=== PATIENT | male | born 1980 | race Caucasian/White ===

== ENCOUNTER 2021-02-20 03:23 | Emergency (ER) | payer OTHER, SELFPAY ==
[2021-02-20 03:32] VITALS: BP 175/111; PULSE 75; RESP 17; TEMP 36.9; O2SAT 75; BMI 38.8
--- NOTE | 2021-02-20 03:43 | CT_ITS ---
PROCEDURE INFORMATION: Exam: CT Abdomen And Pelvis With Contrast Exam date and time: 02/20/2021 3:43 AM Age: 40 years old Clinical indication: Abdominal pain; Other: Bilateral flank and mid abdomen pain; Additional info: Abd pain TECHNIQUE: Imaging protocol: Computed tomography of the abdomen and pelvis with contrast. Radiation optimization: All CT scans at this facility use at least one of these dose optimization techniques: automated exposure control; mA and/or kV adjustment per patient size (includes targeted exams where dose is matched to clinical indication); or iterative reconstruction. Contrast material: ISOVUE; Contrast volume: 75 ml; Contrast route: IV; COMPARISON: No relevant prior studies available. FINDINGS: Lungs: Minimal posterior dependent atelectasis. Liver: Normal. Gallbladder and bile ducts: Normal. Pancreas: Normal. Spleen: Normal. Adrenal glands: Normal. No mass. Kidneys and ureters: Bilateral nephrolithiasis. Left hydroureteronephrosis, with obstructive 3 mm calculus in the distal left ureter (series 3, image 120). 11 mm hypodense focus within the medial aspect of the left renal midpole, possibly proteinaceous cyst, although not definitively characterized on this study. Stomach and bowel: Normal. Appendix: Appendix normal. Intraperitoneal space: Unremarkable. No free air. No significant fluid collection. Vasculature: Unremarkable. No abdominal aortic aneurysm. Lymph nodes: Unremarkable. No enlarged lymph nodes. Urinary bladder: Unremarkable as visualized. Reproductive: Unremarkable as visualized. Bones/joints: No acute abnormality. Soft tissues: Small fat containing left inguinal hernia. Small fat containing umbilical hernia. IMPRESSION: 1. Left hydroureteronephrosis, with obstructive 3 mm calculus in the distal left ureter (series 3, image 120). 2. 11 mm hypodense focus within the medial aspect of the left renal midpole, possibly proteinaceous cyst, although not definitively characterized on this study. Recommend further evaluation with renal CT or MRI. COMMENTS: Consistent with the [employer]'s Incidental Findings Committee white paper (J Am Sina Radiol 2018): Any incidental renal lesion less than 1 cm or classified as too small to characterize, or any incidental cystic renal lesion characterized as simple-appearing, is likely benign. No follow-up imaging is recommended for these lesions per consensus recommendations based on imaging criteria.
--- NOTE | 2021-02-20 03:50 | [facility].EDNVD ---
ED Disposition Clinical Impression: Renal colic on left side Disposition: Home, Self-Care Condition on Discharge: Good Instructions: Kidney Stones -- Adult Additional Instructions: pt with acute lt renal colic Prescriptions: Tamsulosin HCl [Flomax 0.4mg capsule] 0.4 mg PO HS #10 cap Prescription Printed - Critical Care Critical Care Time: No Attestation: On , the high probability of a clinically significant, sudden or life threatening deterioration of the following system(s) required my full and direct attention, intervention and personal management. The time I documented below is in addition to time spent performing reported procedures but includes the following listed in this critical care notation. Medical Decision Making - Medical Records Medical records reviewed: Yes: I reviewed the patient's medical records. - Refguio Inquiry Pt receiving controlled substance: No Vital Signs: 02/20/21 03:32 02/20/21 04:23 02/20/21 04:30 Temperature 98.4 F Temperature Source Oral Pulse Rate 71 62 Pulse Rate [Right Brachial] 75 Respiratory Rate 17 Blood Pressure 109/67 L 121/76 Blood Pressure [Right Arm] 175/111 H Blood Pressure Mean [Right Arm] 132 Blood Pressure Source [Right Arm] Automatic Cuff Blood Pressure Position [Right Arm] Sitting 02 Sat by Pulse Oximetry 75 L 95 95 Oxygen Delivery Method Room Air Room Air 02/20/21 05:01 Temperature Temperature Source Pulse Rate 79 Pulse Rate [Right Brachial] Respiratory Rate Blood Pressure 104/64 L Blood Pressure [Right Arm] Blood Pressure Mean [Right Arm] Blood Pressure Source [Right Arm] Blood Pressure Position [Right Arm] 02 Sat by Pulse Oximetry 94 L Oxygen Delivery Method Room Air - Lab Data Lab results reviewed: Yes: I reviewed the patient's lab results. Lab Results 02/20/21 03:35: WBC 11.2 H, RBC 5.21, Hgb 14.9, Hct 43.8, MCV 84.0, MCH 28.5, MCHC 34.0, RDW 14.5, Plt Count 242, MPV 8.4, Neut % (Auto) 75.9, Lymph % (Auto) 16.3, [place] % (Auto) 3.8, Eos % (Auto) 2.9, Baso % (Auto) 1.0, Neut # (Auto) 8.5 H, Lymph # (Auto) 1.8, [place] # (Auto) 0.4, Eos # (Auto) 0.3, Baso # (Auto) 0.1 02/20/21 03:35: Sodium 140, Potassium 4.1, Chloride 104, Carbon Dioxide 22, Anion Gap 18.1 H, BUN 14, Creatinine 1.00, Estimated Creat Clear 156, Estimated GFR 83, Est GFR ( Amer) 100, Glucose 155 H, Calcium 9.0, Total Bilirubin 0.6, AST 38, ALT 46, Alkaline Phosphatase 96, Total Protein 8.2, Albumin 4.6, Globulin 3.6 H, Albumin/Globulin Ratio 1.3, Amylase 70, Lipase 88 Result diagrams: 02/20/21 03:35 02/20/21 03:35 Orders (Tests/Meds): ED MEDICATIONS Generic Name Dose Route Start Last Admin Trade Name Freq PRN Reason Stop Dose Admin Lactated Ringer's 1,000 mls @ 999 mls/hr 02/20/21 04:00 02/20/21 03:57 Lactated Ringer's 1000 Ml Bag IV 02/20/21 05:00 999 mls/hr .Q1H1M KAYE Administration Tamsulosin HCl 0.4 mg 02/20/21 21:00 02/20/21 03:57 Tamsulosin 0.4mg Capsule PO 03/22/21 20:59 0.4 mg HS KAYE Administration Discontinued Medications Generic Name Dose Route Start Last Admin Trade Name Freq PRN Reason Stop Dose Admin Sodium Chloride 1,000 mls @ 999 mls/hr 02/20/21 04:00 Sod Chlor 0.9% 1000ml Bag IV 02/20/21 05:00 .Q1H1M KAYE Iopamidol 75 ml 02/20/21 04:15 02/20/21 04:16 Iopamidol-370 (76%);100ml Bottle IV 02/20/21 04:16 75 ml ONCE ONE Administration Ketorolac Tromethamine 30 mg 02/20/21 03:47 02/20/21 03:49 Ketorolac 30mg/Ml Vial IV 02/20/21 03:48 30 mg ONCE ONE Administration Ondansetron HCl 4 mg 02/20/21 03:47 02/20/21 03:49 Ondansetron 4mg/2ml Vial IV 02/20/21 03:48 4 mg ONCE ONE Administration Sodium Chloride 10 ml 02/20/21 04:15 02/20/21 04:16 Sodium Chloride 0.9% 10ml Syr (Rad Only) IV 02/20/21 04:16 10 ml ONCE ONE Administration ORDERS Category Date Time Status Urinalysis and Microscopic Stat Lab 02/20/21 03:43 Ordered -
[2021-02-20 03:59] LABS: Alanine Aminotransferase 46 U/L (12-78); Albumin Level 4.6 g/dl (3.5-5.0); Albumin/Globulin Ratio 1.3 (1.1-1.8); Alkaline Phosphatase 96 U/L (38-126); Amylase 70 U/L (30-110); Anion Gap 18.1 mEq/L (5-15); Aspartate Amino Transferase 38 U/L (17-59); Bilirubin,Total 0.6 mg/dl (0.2-1.3); Blood Urea Nitrogen 14 mg/dl (9-20); Carbon Dioxide 22 mmol/L (22.0-30.0); Chloride 104 mmol/L (98-107); Creatinine Clearance Estimated 156 mL/min (50-200); Estimated Glomerular Filt Rate 83 ml/min (>60); GFR (African American) 100 ML/MIN (>60); Globulin 3.6 g/dL (1.3-3.2); Glucose 155 mg/dl (74-100); Lipase 88 U/L (23-300); Potassium 4.1 mmoL/L (3.5-5.1); Sodium 140 mmol/L (136-145); Total Protein,Serum 8.2 g/dl (6.3-8.2)
[2021-02-20 04:02] LABS: Basophils # 0.1 K/mm3 (0-0.2); Eosinophils # 0.3 K/mm3 (0.0-0.4); Eosinophils % 2.9 % (0.1-12.0); Hematocrit 43.8 % (42.0-52.0); Hemoglobin 14.9 g/dL (14.1-18.0); Lymphocytes # 1.8 K/mm3 (0.7-4.5); Lymphocytes % 16.3 % (10-50); Mean Corpuscular Hemoglobin 28.5 pg (27.0-31.2); Mean Platelet Volume 8.4 fl (7.4-10.4); Monocytes # 0.4 K/mm3 (0.1-1.0); Monocytes % 3.8 % (1.7-9.3); Neutrophils # 8.5 K/mm3 (1.8-7.8); Neutrophils % 75.9 % (37.0-80.0); Platelet Count 242 K/mm3 (142-424); Red Blood Count 5.21 M/mm3 (4.60-6.20); Red Cell Distribution Width 14.5 % (11.5-17.5); White Blood Count 11.2 K/mm3 (4.8-10.8)
--- NOTE | 2021-02-20 04:06 | PC.NURSE ---
patient in xray
[2021-02-20 04:23] VITALS: BP 109/67; PULSE 71; O2SAT 95
[2021-02-20 04:30] VITALS: BP 121/76; PULSE 62; O2SAT 95
[2021-02-20 05:01] VITALS: BP 104/64; PULSE 79; O2SAT 94
[2021-02-20 05:33] VITALS: BP 120/75; PULSE 79; RESP 16; TEMP 36.7; O2SAT 97
== END 2021-02-20 05:55 | disposition home or self-care (01) ==
PROVIDERS: Emergency Provider Emergency Medicine
DX: N13.2 Hydronephrosis with renal and ureteral calculous obstruction (principal); Z87.442 Personal history of urinary calculi
CPT/HCPCS: 74177; 80053; 82150; 83690; 85025; 96365; 96375; 99283; J2405; Q9967

== ENCOUNTER 2021-02-20 19:43 | Emergency (ER) | payer OTHER, SELFPAY ==
[2021-02-20 19:56] VITALS: BP 147/50; PULSE 86; RESP 15; TEMP 36.8; O2SAT 97; BMI 38.8
--- NOTE | 2021-02-20 20:05 | [facility].EDGENADL ---
ED Disposition Condition on Discharge: Good - Critical Care Critical Care Time: No <TrayLuisito - Last Filed: 02/20/21 20:05> <Charlie Tompkins - Last Filed: 02/20/21 22:16> Clinical Impression: Renal colic on left side, ELVIS (acute kidney injury) Leukocytosis Qualifiers: Leukocytosis type: unspecified Qualified Code(s): D72.829 - Elevated white blood cell count, unspecified Disposition: Home, Self-Care Instructions: DI for Kidney Stones Additional Instructions: fluids and call dr wise in am Referrals: Provider,MD Efrain [Primary Care Provider] - David Wise MD [Staff Physician] - Attestation: On 02/20/21, the high probability of a clinically significant, sudden or life threatening deterioration of the following system(s) required my full and direct attention, intervention and personal management. The time I documented below is in addition to time spent performing reported procedures but includes the following listed in this critical care notation. Medical Decision Making - Medical Records Medical records reviewed: Yes: I reviewed the patient's medical records. - Refugio Inquiry Pt receiving controlled substance: Yes Refugio was queried for this patient: Yes ([id number] ) Risks and benefits of using a controlled substance: were discussed with pt by me <TrayLuisito - Last Filed: 02/20/21 20:05> - Lab Data Lab results reviewed: Yes: I reviewed the patient's lab results. Result diagrams: 02/20/21 20:40 02/20/21 20:40 <Charlie Tompkins - Last Filed: 02/20/21 22:16> Vital Signs: 02/20/21 19:56 Temperature 98.2 F Temperature Source Oral Pulse Rate [Left Brachial] 86 Respiratory Rate 15 Blood Pressure [Left Arm] 147/50 H Blood Pressure Mean [Left Arm] 82 Blood Pressure Source [Left Arm] Automatic Cuff Blood Pressure Position [Left Arm] Sitting 02 Sat by Pulse Oximetry 97 Oxygen Delivery Method Room Air - Lab Data Lab Results 02/20/21 20:40: WBC 17.1 H D, RBC 5.24, Hgb 14.7, Hct 42.9, MCV 81.9, MCH 28.0, MCHC 34.3, RDW 14.1, Plt Count 249, MPV 8.5, Neut % (Auto) 85.7 H, Lymph % (Auto) 8.9 L, [place] % (Auto) 4.3, Eos % (Auto) 0.4, Baso % (Auto) 0.6, Neut # (Auto) 14.6 H, Lymph # (Auto) 1.5, [place] # (Auto) 0.7, Eos # (Auto) 0.1, Baso # (Auto) 0.1, Total Counted 100, Neutrophils % (Manual) 82 H, Band Neutrophils % 8.0, Lymphocytes % (Manual) 5 L, Monocytes % (Manual) 5, Platelet Estimate Normal, RBC Morphology Normal 02/20/21 20:40: Sodium 137, Potassium 4.5, Chloride 99, Carbon Dioxide 26, Anion Gap 16.5 H, BUN 14, Creatinine 1.40 H D, Estimated Creat Clear 112, Estimated GFR 56 L, Est GFR ( Amer) 68 D, Glucose 125 H, Calcium 9.0, Total Bilirubin 0.9, AST 39, ALT 42, Alkaline Phosphatase 75, Total Protein 8.0, Albumin 4.5, Globulin 3.5 H, Albumin/Globulin Ratio 1.3 Orders (Tests/Meds): ED MEDICATIONS Generic Name Dose Route Start Last Admin Trade Name Freq PRN Reason Stop Dose Admin Sodium Chloride 1,000 mls @ 999 mls/hr 02/20/21 20:00 02/20/21 20:49 Sod Chlor 0.9% 1000ml Bag IV 02/20/21 21:00 999 mls/hr .Q1H1M KAYE Administration Sodium Chloride 1,000 mls @ 999 mls/hr 02/20/21 21:30 02/20/21 21:30 Sod Chlor 0.9% 1000ml Bag IV 02/20/21 22:30 999 mls/hr .Q1H1M KAYE Administration Levofloxacin/Dextrose 500 mg in 100 mls @ 100 mls/hr 02/20/21 21:45 02/20/21 21:45 Levaquin 500mg/100ml Premix IV 03/06/21 21:44 100 mls/hr Q24H KAYE Administration Discontinued Medications Generic Name Dose Route Start Last Admin Trade Name Freq PRN Reason Stop Dose Admin Hydromorphone HCl 1 mg 02/20/21 19:53 02/20/21 20:48 Hydromorphone 2mg/Ml Syringe IV 02/20/21 19:54 1 mg ONCE ONE Administration Ketorolac Tromethamine 30 mg 02/20/21 19:53 02/20/21 20:49 Ketorolac 30mg/Ml Vial IV 02/20/21 19:54 30 mg ONCE ONE Administration Ondansetron HCl 4 mg 02/20/21 19:53 02/20/21 20:49 Ondansetron 4mg/2ml Vial IV 02/20/21 19:54 4 mg
[2021-02-20 21:06] LABS: Basophils # 0.1 K/mm3 (0-0.2); Basophils % 0.6 % (0.1-2.0); Eosinophils # 0.1 K/mm3 (0.0-0.4); Eosinophils % 0.4 % (0.1-12.0); Hematocrit 42.9 % (42.0-52.0); Hemoglobin 14.7 g/dL (14.1-18.0); Lymphocytes # 1.5 K/mm3 (0.7-4.5); Lymphocytes % 8.9 % (10-50); Mean Corpuscular HGB Conc 34.3 g/dL (31.8-35.4); Mean Corpuscular Volume 81.9 fl (80-94); Mean Platelet Volume 8.5 fl (7.4-10.4); Monocytes # 0.7 K/mm3 (0.1-1.0); Monocytes % 4.3 % (1.7-9.3); Neutrophils # 14.6 K/mm3 (1.8-7.8); Neutrophils % 85.7 % (37.0-80.0); Platelet Count 249 K/mm3 (142-424); Red Blood Count 5.24 M/mm3 (4.60-6.20); Red Cell Distribution Width 14.1 % (11.5-17.5); White Blood Count 17.1 K/mm3 (4.8-10.8)
[2021-02-20 21:09] LABS: Alanine Aminotransferase 42 U/L (12-78); Albumin Level 4.5 g/dl (3.5-5.0); Albumin/Globulin Ratio 1.3 (1.1-1.8); Alkaline Phosphatase 75 U/L (38-126); Anion Gap 16.5 mEq/L (5-15); Aspartate Amino Transferase 39 U/L (17-59); Bilirubin,Total 0.9 mg/dl (0.2-1.3); Blood Urea Nitrogen 14 mg/dl (9-20); Carbon Dioxide 26 mmol/L (22.0-30.0); Chloride 99 mmol/L (98-107); Creatinine Clearance Estimated 112 mL/min (50-200); Estimated Glomerular Filt Rate 56 ml/min (>60); GFR (African American) 68 ML/MIN (>60); Globulin 3.5 g/dL (1.3-3.2); Glucose 125 mg/dl (74-100); MANUAL DIFFERENTIAL MANUAL DIFFERENTIAL (MANUAL DIFF); Potassium 4.5 mmoL/L (3.5-5.1); Sodium 137 mmol/L (136-145)
[2021-02-20 21:18] LABS: Lymphocytes % 5 % (10-50); Monocytes % 5 % (2-9); Neutrophils % 82 % (42-76); Platelet Estimate Normal; RBC Morphology Normal; Total Cells Counted 100
[2021-02-20 22:24] LABS: Microscopic, Urine URINE MICROSCOPIC (MICROSCOPIC)
[2021-02-20 22:26] LABS: Appearance,Urine CLEAR (Clear); Bilirubin,Urine Negative (Negative); Blood, Urine Negative (Negative); Color,Urine STRAW (Yellow); Glucose,Urine (UA) Negative (Negative); Ketones,Urine Negative (Negative); Leukocyte Esterase,Urine Negative (Negative); Nitrate,Urine Negative (Negative); Protein,Urine Negative (Negative); Specific Gravity, Urine <= 1.005 (1.005-1.030); Urobilinogen,Urine 0.2 EU/dl (0.2)
[2021-02-20 22:34] LABS: Squamous Epithelial Cell,Urine Occasional #/hpf (0-5)
[2021-02-20 22:50] VITALS: BP 108/75; PULSE 75; RESP 18; TEMP 36.9; O2SAT 98
== END 2021-02-20 23:04 | disposition home or self-care (01) ==
PROVIDERS: Emergency Medicine; Emergency Provider Emergency Medicine
DX: N23 Unspecified renal colic (principal); Z87.442 Personal history of urinary calculi
CPT/HCPCS: 80053; 81001; 85007; 85025; 96365; 96367; 96375; 99282; J1956; J2405

== ENCOUNTER 2025-01-18 16:15 | Emergency (ER) | payer OTHER, SELFPAY ==
[2025-01-18] VITALS (9 sets, daily range): BP systolic 107–145; BP diastolic 60–94; PULSE 55–71; RESP 16–20; TEMP 36.4–36.6; O2SAT 94–97; BMI 38.3
--- OUTSIDE RECORDS SUMMARY | 2025-01-18 16:22 | XMS_ITS | Continuity of Care Document ---
Author Name [facility] Organization [facility] Care Team Providers Care Sourcing Associate Name Role Phone [facility] Unavailable Unavailable Problems Combined list of problems from Department of Defense and Veterans Affairs facilities. It does not include entries that were removed or entered in error. 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 [place] visit for: services physical separation Active Condition [facility] tobacco use Active Condition [facility] visit for: screening exam depression Inactive Condition DoD CHEST PAIN Active Condition DoD NECK SPRAIN Inactive Condition [facility] Other Physical Therapy Active Condition [facility] ASSESSMENT OF PATIENT CONDITION IMPAIRMENT RATING ___% Active Condition [facility] visit for: screening mental / developmental disorders Inactive Condition DoD allergies Active Condition DoD PREHYPERTENSION Active Condition DoD LUMBAGO Active Condition DoD SINUSITIS Inactive Condition [facility] visit for: exam following treatment Inactive Condition [facility] ANXIETY DISORDER NOS Active Condition D oD insomnia Active Condition [facility] MARITAL PROBLEM Active Condition [facility] AXIS IV PROBLEMS OCCUPATIONAL Active Condition [facility] ALCOHOL ABUSE Active Condition DoD MAJOR DEPRESSION SINGLE EPISODE MODERATE Active Condition [facility] PSYCHIATRIC DIAGNOSIS OR CONDITION DEFERRED ON AXIS II Active Condition [facility] ADJUSTMENT DISORDER Active Condition Do D MUSCLE SPASM Inactive Condition [facility] TENDONITIS PATELLAR Active Condition Do D Need For Vaccination DTP + TAB Inactive Condition [facility] Need For Vaccination Typhoid Inactive Condition DoD lower back pain Active Condition [facility] Body Mass Index Inactive Condition [facility] Dietary Counseling Pertaining To Specific Condition Inactive Condition [facility] Patient Education - Injury Prevention Inactive Condition [facility] visit for: ears / hearing exam Active Condition DoD visit for: occupational health / fitness exam Active Condition DoD Blood Pressure Isolated Elevated Inactive Condition DoD TENDONITIS Active Condition DoD joint pain, localized in the wrist Inactive Condition DoD NICOTINE DEPENDENCE Inactive Condition Pt chews 1 pack per 2 days for the past 7 yrs. Has tried quitting one time cold turkey. Has never tried w/ nicotine replace tx or any other assistance. Offered [facility] tobacco cessation program. Discussed w/ pt on the benefits of quitting but he feels he is not ready at this moment. DoD visit for: therapeutic drug monitoring Inactive Condition DoD visit for: screening exam pulmonary tuberculosis Inactive Condition DoD Vaccines Prophylactic Need Against Bacterial Diseases Inactive Condition DoD visit for: administrative purpose Inactive Condition Do D visit for: screening exam eye disorders Inactive Condition DoD GASTROENTERITIS Inactive Condition DoD NORMAL ROUTINE HISTORY AND PHYSICAL Inactive Condition DoD HYPERLIPIDEMIA Active Condition A:- p t cholesterol has improved since starting triglide 160 mg and fish oil 2g BID 3 wks ago but not at goal. TC > 200, TG > 150, HDL < 40, LDL >130- pt denies any sxs of RICARDO w/ med (initial mild diarhea has subsided and not returned)- denies any sxs of OR or strokeP:- pt will leave area for 9 months - will continue w/ same regimen while gone and repeat labs at new location. - encourage pt's TLC efforts.- remind pt to f/u w/ lipid clinic when return. DoD BURSITIS HEEL Active Condition bilate ral. Ice therapy; rest from running; Medication as prescribed. F/U with PCM for xray results. DoD visit for: services physical Active Condition DoD joint pain, localized in the knee Active Condition acute exac. of ch. lateral patellar subluxation.. .P:ice, nsaid and PT. DoD exposed to venereal disease Inactive Condition testing and tx both tbd. Sm's sp is f/u with her doctor for tx as well. Can can f/u in 3wks to get order to be retested. 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:- Increase physical activity level - Increase awareness of nutritional content of food- Improve timing of eating- Hydrate more with water DoD OBESITY Active Condition BMI=30 [facility] Anticipatory Guidance: Inadequate Physical Activity Inactive Condition DoD OVERWEIGHT Inactive Condition Weight control program screening DoD ARTHROPATHY KNEE / PATELLA / TIBIA / FIBULA Inactive Condition DoD KNEE SPRAIN LEFT Inactive Condition DoD INTERNAL DERANGEMENT OF KNEE CHRONIC Inactive Condition [facility] Arthritis Active Condition [place] 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 (SNOMED CT [id number]) Active Condition LATISHA IBARRA [facility] Chronic low back pain Active Condition [place] Chronic post-traumatic stress disorder Active Condition [place] Depression Active Condition [place] Dysthymia Active Condition [place] Erectile dysfunction Active Condition L LORI [facility] Exposure to potentially hazardous substance Active Condition [facility] Gout Active Condition [facility] Hypertriglyceridemia (SNOMED CT 718704286) Active Condition [facility] Impaired Fasting Glucose (ICD-9-CM 790.21) Active Condition [facility] Knee: arthralgia Active Condition [facility] Low back pain (SNOMED CT 139237578) Active Condition [place] Major depression, single episode Active Condition [place] Neck Pain Active Condition [place] Nicotine dependence Active Condition [facility] [place] Obesity Active Condition [facility] Other and unspecified injury to elbow, forearm, and wrist Active Condition [place] Pain in joint involving ankle and foot Active Condition [place] Pain in joint involving shoulder region Active Condition [place] Proteinuria Active Condition [place] Sunburn of first degree (SNOMED CT 571178682) [facility] Active Condition [facility] Vitamin D Deficiency (ICD-9-CM 268.9) Active Condition [facility] Allergies, Adverse Reactions, Alerts Combined list of allergies from Department of Defense and Veterans Affairs facilities. It does not include entries that were removed or entered in error. Substance Category Reaction Severity Reaction type Status Date Reported Comments Source EGG/POULTR Y {Cla } Food allergy (disorder) Nausea active 7 [facility] EGGS Propensity to adverse reactions to substance (finding) Nausea, Heartburn active 2 [place] EGGS Propensity to adverse reactions to substance (finding) active 1 [facility] OTHER Drug allergy (disorder) Unknown active 5 [facility] Immunizations Combined list of available immunizations from the Department of Defense and Veterans Affairs facilities. Immunization Series Date Given Administered By Site Reaction Lot Number CVX Code Drug Surgical Scrub Tech Status Comments Source TDAP 2019 115 complet ed [place] [facility] (ADULT), 2 LF TETANUS TOXOID, PRESERVATIVE FREE, ADSORBED 2018 09 complet ed [facility] INFLUENZA, UNSPECIFIED FORMULATION 2011 88 complet ed CONTRAIND ICATION=D O NOT REPEAT THIS VACCINE, Allergic to Eggs CLARISSA ATGamal tuberculin skin test; purified protein derivative solution, intradermal 0 2010 Unknown, Provider [id number] Sanofi Pasteur ([facility]) complet ed tuberculi n skin test; purified protein derivativ e solution, intraderm al DoD TDAP 2009 115 complet ed CLARIS[facility] ATI Novel influenza-H1N 1-09, preservative- free, injectable 1 2009 UNK 126 Unknown (UNK) Not Given Novel influenza -K3M2-64, preservat ofelia-free, injectabl e DoD anthrax vaccine 4 2009 [id number] [facility] complet ed anthrax vaccine DoD Novel influenza-H1N 1-09, injectable 0 2009 127 () Not Given Novel influenza -[id number], injectabl e DoD typhoid Vi capsular polysaccharid e vaccine 1 2008 [id number] 101 Sanofi Pasteur ([facility]) complet ed typhoid Vi capsular polysacch aride vaccine DoD tetanus toxoid, reduced diphtheria toxoid, and acellular pertu is vaccine, adsorbed 1 2008 [id number] 115 Sanofi Pasteur ([facility]) complet ed tetanus toxoid, reduced diphtheri a toxoid, and acellular pertussis vaccine, adsorbed DoD anthrax vaccine 3 2007 UNK 24 [facility] complet ed anthrax vaccine DoD anthrax vaccine 2 2006 UNK 24 [facility] ([facility]) complet ed anthrax vaccine DoD meningococcal polysaccharid e (groups A, C, Y and W-135) diphtheria toxoid conjugate vaccine (MCV4P) 1 2006 [id number] 114 [employer] ([facility]) complet ed meningoco ccal polysacch aride (groups A, C, Y and W-135) diphtheri a toxoid conjugate vaccine (MCV4P) DoD typhoid Vi capsular polysaccharid e vaccine 1 2006 [id number] 101 Sanofi Pasteur ([facility]) complet ed typhoid Vi capsular polysacch aride vaccine DoD influenza virus vaccine, split virus (incl. purified surface antigen)-reti red CODE 3 2005 UNK 15 Unknown (UNK) Not Given influenza virus vaccine, split virus (incl. purified surface antigen)- retired CODE DoD hepatitis A and hepatitis B vaccine 3 2005 UNK 104 Unknown (UNK) comple t ed hepatitis A and hepatitis B vaccine DoD influenza virus vaccine, split virus (incl. purified surface antigen)-reti red CODE 1 2004 [id number] 15 Unknown (UNK) comple t ed influenza virus vaccine, split virus (incl. purified surface antigen)- retired CODE DoD varicella virus vaccine 1 2004 NONE 21 (NON) Not Given varicella virus vaccine DoD anthrax vaccine 2 2004 NONE 24 (NON) complet ed anthrax vaccine DoD vaccinia (smallpox) vaccine 1 2004 NONE 75 (NON) Not Given vaccinia (smallpox ) vaccine DoD hepatitis A and hepatitis B vaccine 2 2004 UNK 104 Unknown (UNK) comple t ed hepatitis A and hepatitis B vaccine DoD anthrax vaccine 1 2003 [id number] 24 [facility] ([facility]) complet ed anthrax vaccine DoD typhoid Vi capsular polysaccharid e vaccine 1 2003 UNK 101 Unknown (UNK) comple t ed typhoid Vi capsular polysacch aride vaccine DoD hepatitis A and hepatitis B vaccine 1 2003 UNK 104 Unknown (UNK) comple t ed hepatitis A and hepatitis B vaccine DoD influenza virus vaccine, split virus (incl. purified surface antigen)-reti red CODE 1 2002 [id number] Aguilar (EVN) complet ed influenza virus vaccine, split virus (incl. purified surface antigen)- retired CODE DoD trivalent poliovirus vaccine, live, oral 0 1998 UNK 02 Unknown (UNK) comple t ed trivalent polioviru s vaccine, live, oral DoD measles, mumps and rubella virus vaccine 0 1998 UNK 03 Unknown (UNK) comple t ed measles, mumps and rubella virus vaccine DoD tetanus and diphtheria toxoids, adsorbed, preservative free, for adult use (2 Lf of tetanus toxoid and 2 Lf of diphtheria toxoid) 0 1998 UNK 09 Unknown (UNK) comple t ed tetanus and diphtheri a toxoids, adsorbed, preservat ofelia free, for adult use (2 Lf of tetanus toxoid and 2 Lf of diphtheri a toxoid) DoD meningococcal polysaccharid e vaccine (MPSV4) 0 1998 UNK 32 Unknown (UNK) comple t ed meningoco ccal polysacch aride vaccine (MPSV4) DoD Encounters Combined list of: 1) Encounters from Department of Veterans Affairs facilities going backup to the last 18 months, not all VA inpatient encounters are included; 2) Encounters from the Department of Defense facilities going backup to 280 months. Location Location Details Encounter Type Encounter Number Reason For Visit Attending Provider ADM Date DC Date Status Disposition Source [facility] OUTPATIENT [id number] knee pain HOWARD SELBY 12/13 Released w/o Limitations [facility]( [facility] OUTPATIENT [id number] for knee pain HOWARD SELBY 01/15 Released with Work/Duty Limitations [facility]( [facility] OUTPAT[facility] [id number] KNEE PAIN HOWARD SELBY 02/12 [facility] with [facility] [id number] over weight STANLEY KOEHLER 03/20 Released w/o Limitations [facility](Ph [facility]sical Therapy [facility] ) OUTPATIENT [id number] WTS ANKUSH VELAZQUEZ 05/01 Released w/o Limitations [facility]( Physica l Therapy [facility]) [facility](Nu trition Clinic [facility] ) OUTPATIENT [id number] [facility] RAZ SAUNDERS 05/01 Released w/o Limitations [facility]( Nutriti on Clinic [facility]) [facility] OUTPATIENT [id number] TEST FOR STD CHUCK VOSS 07/31 Released w/o Limitations [facility]( [facility]) [facility](He aring Conservat ion [facility] ) OUTPATIENT [id number] hearing test ALENA AN 09/25 Released w/o Limitations [facility]( Hearing Conserv ation [facility]) [facility] OUTPATIENT [id number] left knee pain CHUCK VOSS 10/01 Released with Work/Duty Limitations [facility]( [facility]) [facility]( ari Conservat ion [facility] ) OUTPATIENT [id number] hearing test ALENA AN 10/30 Released w/o Limitations [facility]( Hearing Conserv [facility]ion [facility]) [facility](Ph [facility]sical [facility] ) OUTPATIENT [id number] PART 1 CHAPTER PHYSICA L MONSTER EVANS 10/30 Released w/o Limitations [facility]( Physica l Exam [facility]) [facility] OUTPATIENT [id number] tinglin g in feet AB TERRAZAS R 11/07 Released with Work/Duty Limitations [facility]( [facility]) [facility]ical [facility] ) OUTPATIENT [id number] part 2 chapter physica l CLEMENT GARCÍA 12/06 Released w/o Limitations [facility]( Physica l Exam [facility]) [facility] OUTPATIENT [id number] nausea HOWARD SELBY 03/15 Sick at Home/Quarter s [facility]( [facility]) [facility](Im m COVID Cl Ki) OUTPATIENT [id number] NIC RODRIGUEZ 04/25 Released w/o Limitations [facility]( Imm COVID Cl Ki) [facility](Im munizatio n [facility] ) OUTPATIENT [id number] ANTHRAX VACINE. RIANA MOROCHO 06/19 Released w/o Limitations [facility]( Immuniz ation [facility]) [facility](Cl inical Pharm CL KI) TELE CONSULT [id number] cholest francia results JULISA CROCKETT 07/17 [facility]( Clinica l Pharm CL [facility]) [facility](Cl inical Pharm CL KI) OUTPATIENT [id number] cholest francia JULISA CROCKETT 07/18 Released w/o Limitations [facility]( Clinica l Pharm [facility]) [facility](Ph [facility]sical Ex[facility] ) OUTPATIENT [id number] PHA VIC MORSE 07/19 Released w/o Limitations [facility]( Physica l Exam [facility]) [facility](Cl inical Pharm CL KI) OUTPATIENT [id number] cholest francia f/u CROCKETTJULISAISAÍAS 08/08 Released w/o Limitations [facility]( Clinica l Pharm [facility]) [facility] [place]([facility]) OUTPATIENT [id number] predepl oyment medical screeni ng assessm ent HERB LIN 09/02 Released w/o Limitations [facility] [place]) [facility] OUTPATIENT [id number] 04/24 Released w/o Limitations [facility](Ph [facility]sical [facility] ) OUTPATIENT [id number] CISCO Wooten 05/20 Released w/o Limitations [facility]( Physica l Exam [facility]) [facility]ical [facility] ) OUTPATIENT [id number] DAVID RAGSDALE 05/20 Released w/o Limitations [facility]( Physica l Exam [facility]) [facility]) OUTPATIENT [id number] right wrist AUGUST HAMMONDS 06/10 Released with Work/Duty Limitations [facility]( [facility]) [facility] OUTPATIENT [id number] overwei ght program AUGUST HAMMONDS R 08/06 Released w/o Limitations [facility]( [facility]) [facility](AM H M01B [facility]) OUTPATIENT [id number] diarrhe a and nausea LAURA SIERRA 08/07 Sick at Home/Quarter s [facility]( AM[facility] M[facility]) [facility](Ph [facility]ical [facility] ) OUTPATIENT [id number] RIANA Hernández 09/08 Released w/o Limitations [facility]( Physica l Exam [facility]) [facility](He aring Conservat ion [facility] ) OUTPATIENT [id number] Annual Hearing Exam DAVID FUNES 09/24 Released w/o Limitations [facility]( Hearing Conserv ation [facility]) [facility] ) OUTPATIENT [id number] FLAGGED BY COMMAND ER FOR WEIGHT CONTROL CLEOPATRA SCALES 10/01 Released w/o Limitations [facility]( [facility]) [facility](Cl inical Pharm CL KI) OUTPATIENT [id number] f/u lipid not seen for over a year PURVI LANZA Kishan 10/05 Released w/o Limitations [facility]( Clinica l Pharm [facility]) [facility](Cl inical Pharm CL [facility]) TELE CONSULT [id number] lipid labs PURVI LANZA Kishan 11/03 [facility]( Clinica l Pharm [facility]) [facility]) OUTPATIENT [id number] low back pain HOWARD SELBY 12/03 Sick at Home/Quarter s [facility]( [facility]) [facility]( ysical Exam [facility] ) OUTPATIENT [id number] tdapcolin AARON L 01/15 Released w/o Limitations [facility]( Physica l Exam [facility]) [facility] OUTPATIENT [id number] left knee pain and stiffne ss ANAHI CASH 03/09 Released with Work/Duty Limitations [facility]( [facility]) [facility]( ysical Therapy [facility] ) OUTPATIENT [id number] RAZ Noel 05/03 Released with Work/Duty Limitations [facility]( Physica l Therapy [facility]) [facility] OUTPATIENT [id number] er follow up HOWARD SELBY 05/26 Sick at Home/Quarter s [facility]( [facility]) [facility] ) OUTPATIENT [id number] f/u wt CLEOPATRA SCALES 08/04 Released w/o Limitations [facility]( Nutriti on Clinic [facility]) [facility](Cl inical Pharm CL KI) OUTPATIENT [id number] lipid - seen 09/14 VERNELL REINA 08/04 Released w/o Limitations [facility]( Clinica l Pharm [facility]) [facility] ) OUTPATIENT [id number] Term Hearing Exam DAVID FUNES 09/02 Released w/o Limitations [facility]( Hearing Conserv [facility]ion [facility]) [facility](Ph ysical Therapy [facility] ) OUTPATIENT [id number] L knee/fu ZARCORAZ López 09/08 Released with Work/Duty Limitations [facility]( Physica l Therapy [facility]) [facility](Nu [facility]ition Clinic [facility] ) OUTPATIENT [id number] pt needs a CLEOPATRA Denson 09/09 Released w/o Limitations [facility]( Nutriti on Clinic [facility]) [facility](Ph ysical Exam [facility] ) OUTPATIENT [id number] part 2 [facility]. VIC MORSE 09/14 Released w/o Limitations [facility]( Physica l Exam [facility]) [facility](Cl inical Pharm CL KI) OUTPATIENT [id number] follow up on labs VERNELL REINA 09/15 Released w/o Limitations [facility]( Clinica l Pharm [facility]) [facility]) OUTPATIENT [id number] leg pain GODAMASO CARTY Kishan 09/15 Released w/o Limitations [facility]( [facility]) [facility](Ph ysical Therapy [facility] ) TELE CONSULT [id number] review MRI and POC RAZ ZARCO López 09/21 [facility]( [facility](Im munizatio n [facility] ) OUTPATIENT [id number] update Imm RIANA MOROCHO 11/22 Released w/o Limitations [facility]( Immuniz ation [facility]) [facility](Im munizatio n [facility] ) OUTPATIENT [id number] ppd check BEBA VELAZQUEZ 11/24 Released w/o Limitations [facility]( Immuniz ation [facility]) [facility](Ph ysical Exam [facility] ) OUTPATIENT [id number] part 2 pre dep over seas went on line via VIC Sr 11/25 Released w/o Limitations [facility]( Physica l Exam [facility]) [facility] [place]([facility]) OUTPATIENT [id number] MOHSEN ROJAS N 12/28 Released w/o Limitations [facility] [place]) [facility](Ph [facility]sical Exam [facility] ) OUTPATIENT [id number] ADMIN VIC MORSE 06/07 Released w/o Limitations [facility]( Physica l Exam [facility]) [facility](Im munizatio n [facility] ) OUTPATIENT [id number] ppd KATHI COLE 12/23 Released w/o Limitations [facility]( Immuniz ation [facility]) [facility](Im munizatio n [facility] ) OUTPATIENT [id number] ppd check RENE STEFANIAN 12/27 Released w/o Limitations [facility]( Immuniz ation [facility]) [facility](Ph ysical Exam [facility] ) OUTPATIENT [id number] VISION COMPLET E ERLIN GILL 12/27 Released w/o Limitations [facility]( Physica l Exam [facility]) [facility]( aring Conservat ion [facility] ) OUTPATIENT [id number] Post-de ploymen t Hearing Exam JEANNIE MERRILL 12/28 Released w/o Limitations [facility]( Hearing Conserv ation [facility]) [facility](Ph [facility]sical Exam [facility] ) OUTPATIENT [id number] [employer] DE[employer] MALE DIONNE AGUILAR 12/29 Released w/o Limitations [facility]( Physica l Exam [facility]) [facility](Ph [facility]sical Exam [facility] ) OUTPATIENT [id number] PHA PART 2 [employer] MALE ROSALVA CHARLES N 01/03 Released w/o Limitations [facility]( Physica l Exam [facility]) [facility](Ph ysical Exam [facility] ) OUTPATIENT [id number] PART 2 PHA [employer]. ROSALVA CHARLES N 01/20 Released w/o Limitations [facility]( Physica l Exam [facility]) [facility](Im munizatio n [facility] ) OUTPATIENT [id number] update imm KATHI COLE 04/19 Released w/o Limitations [facility]( Immuniz ation [facility]) [facility](Im munizatio n [facility] ) OUTPATIENT [id number] ppd check KATHI COLE M 04/21 Released w/o Limitations [facility]( Immuniz ation [facility]) [facility]) OUTPATIENT [id number] severe diarrhe a ANAHI CASH H 05/04 Sick at Home/Quarter s [facility]( [facility]) [facility](Ph [facility]sical Exam [facility] ) OUTPATIENT [id number] PDHRA/A ANGEL SCHMIDT S 05/09 Released w/o Limitations [facility]( Physica l Exam [facility]) [facility]) OUTPATIENT [id number] KARTHIK. BACK PAIN. ZULY RUBIN M 06/06 Released with Work/Duty Limitations [facility]( [facility]) [facility](Ph ysical Therapy [facility] ) OUTPATIENT [id number] MANJULA Curry 09/20 Released with Work/Duty Limitations [facility]( Physica l Therapy [facility] ) [facility](Ph ysical Therapy [facility] ) OUTPATIENT [id number] HARDY MCCARTHY 10/03 Released w/o Limitations [facility]( Physica l Therapy [facility] ) [facility](AM H M01D Int Med Ki) OUTPATIENT [id number] Karthik- walkin in neck injury MERVIN BARRETT R. 10/11 Sick at Home/Quarter s [facility]( AMH M01D Int Med Ki) [facility]) TELE CONSULT [id number] referal MERVIN BARRETT RJoce 10/11 [facility]( [facility]) [facility](AM H M01D Int Med Ki) OUTPATIENT [id number] karthik rib pain KENN TORRES 11/14 Released with Work/Duty Limitations [facility]( AMH M01D Int Med Ki) [facility]) TELE CONSULT [id number] Notes Entered by: Alejandra RALPH 20 Nov 2011 1152 ------- ------- ------- ------- -- Pt does not wish to partici felicita in RESPECt -[facility] Program KENN TORRES 11/19 [facility]( [facility]) [facility](He aring Conservat ion [facility] ) OUTPATIENT [id number] ANNAUL HEARING EXAM ROBERTLOLA 11/27 Released w/o Limitations [facility]( [facility] Conserv [facility](Ph ysical Exam [facility] ) OUTPATIENT [id number] [employer] ETS/ MARSHA CHÁVEZ 12/04 Released w/o Limitations [facility]( [facility] Outpatient Encounter [id number] 09/05 [facility] [place] En[place] [id number] 12/18 [place] [facility] Outpatient Encounter [id number] 12/24 [facility] Procedures Combined list of: 1) Procedures from Department of Veterans Affairs facilities going back up to thelast 18 months, not all VA non-surgical procedures are included; 2) All procedures from the Department of Defense facilities. Procedure Procedure Type Code Date Perfomer Comments [facility] SCREENING TEST OF VISUAL ACUITY, QUANTITATIVE, BILATERAL 12/28 [facility] IMMUNIZATION ADMINISTRATION (INCLUDES PERCUTANEOUS, INTRADERMAL, SUBCUTANEOUS, OR INTRAMUSCULAR INJECTIONS); 1 VACCINE (SINGLE OR COMBINATION VACCINE/TOXOID) 09/02 DoD EAR PROTECTOR ATTENUATION MEASUREMENTS 04/18 DoD SKIN TEST; TUBERCULOSIS, INTRADERMAL 04/18 DoD SCREENING TEST OF VISUAL ACUITY, QUANTITATIVE, BILATERAL 04/18 DoD THERAPEUTIC, PROPHYLACTIC OR DIAGNOSTIC INJECTION (SPECIFY MATERIAL INJECTED); SUBCUTANEOUS OR INTRAMUSCULAR 03/15 DoD EAR PROTECTOR ATTENUATION MEASUREMENTS 11/27 DoD PSYCHIATRIC EVALUATION OF HOSPITAL RECORDS, OTHER PSYCHIATRIC REPORTS, PSYCHOMETRIC AND/OR PROJECTIVE TESTS, AND OTHER ACCUMULATED DATA FOR MEDICALDIAGNOSTIC PURPOSES 11/21 [facility] ELECTROCARDIOGRAM, ROUTINE ECG WITH AT LEAST 12 LEADS; WITH INTERPRETATION AND REPORT 11/14 [facility] EXERCISE CLASSES, NON-PHYSICIAN PROVIDER, PER SESSION 10/03 [facility] THERAPEUTIC ACTIVITIES, DIRECT (ONE-ON-ONE) PATIENT CONTACT (USE OF DYNAMIC ACTIVITIES TO IMPROVE FUNCTIONAL PERFORMANCE), EACH 15 MINUTES 09/20 [facility] THERAPEUTIC, PROPHYLACTIC, OR DIAGNOSTIC INJECTION (SPECIFY SUBSTANCE OR DRUG); SUBCUTANEOUS OR INTRAMUSCULAR 06/06 [facility] INDIVIDUAL PSYCHOTHERAPY, INSIGHT ORIENTED, BEHAVIOR MODIFYING AND/OR SUPPORTIVE, IN AN OFFICE OR OUTPATIENT FACILITY, APPROXIMATELY 20 TO 30 MINUTES [id number] WITH THE PATIENT 05/09 [facility] SKIN TEST; TUBERCULOSIS, INTRADERMAL 04/19 [facility] EAR PROTECTOR ATTENUATION MEASUREMENTS 12/28 [facility] VIS FUNCT SCREEN,AUTOMAT/SEMI-AUTO MAT BILAT QUANT DETERM VISUAL ACUITY,OCULAR ALIGN,COLOR VISION,PSEUDOISOCHROMAT PLATES,& FIELD VIS (MAY INC ALL/SOME SCRN DETERM FOR CONTRAST SENSITIV,VIS UND GLARE) 12/27 [facility] SKIN TEST; TUBERCULOSIS, INTRADERMAL 12/23 [facility] SKIN TEST; TUBERCULOSIS, INTRADERMAL 11/22 [facility] INDIVIDUAL PSYCHOTHERAPY, INSIGHT ORIENTED, BEHAVIOR MODIFYING AND/OR SUPPORTIVE, IN AN OFFICE OR OUTPATIENT FACILITY, APPROXIMATELY 45 TO 50 MINUTES [id number] WITH THE PATIENT 11/02 [facility] INDIVIDUAL PSYCHOTHERAPY, INSIGHT ORIENTED, BEHAVIOR MODIFYING AND/OR SUPPORTIVE, IN AN OFFICE OR OUTPATIENT FACILITY, APPROXIMATELY 45 TO 50 MINUTES [id number] W THE PATIENT; W MED EVAL & MGT SER 09/17 [facility] INDIVIDUAL PSYCHOTHERAPY, INSIGHT ORIENTED, BEHAVIOR MODIFYING AND/OR SUPPORTIVE, IN AN OFFICE OR OUTPATIENT FACILITY, APPROXIMATELY 45 TO 50 MINUTES [id number] WITH THE PATIENT 09/16 [facility] CURRENT SMOKELESS TOBACCO USER (EG, CHEW, SNUFF) (PV) 09/15 [facility] INDIVIDUAL PSYCHOTHERAPY, INSIGHT ORIENTED, BEHAVIOR MODIFYING AND/OR SUPPORTIVE, IN AN OFFICE OR OUTPATIENT FACILITY, APPROXIMATELY 75 TO 80 MINUTES [id number] WITH THE PATIENT 09/14 [facility] INDIVIDUAL PSYCHOTHERAPY, INSIGHT ORIENTED, BEHAVIOR MODIFYING AND/OR SUPPORTIVE, IN AN OFFICE OR OUTPATIENT FACILITY, APPROXIMATELY 75 TO 80 MINUTES [id number] WITH THE PATIENT 09/10 [facility] GROUP PSYCHOTHERAPY (OTHER THAN OF A MULTIPLE-FAMILY GROUP) 09/10 [facility] MEDICAL NUTRITION THERAPY; RE-ASSESSMENT AND INTERVENTION, INDIVIDUAL, [id number] WITH THE PATIENT, EACH 15 MINUTES 09/09 [facility] THERAPEUTIC ACTIVITIES, DIRECT (ONE-ON-ONE) PATIENT CONTACT (USE OF DYNAMIC ACTIVITIES TO IMPROVE FUNCTIONAL PERFORMANCE), EACH 15 MINUTES 09/08 [facility] INDIVIDUAL PSYCHOTHERAPY, INSIGHT ORIENTED, BEHAVIOR MODIFYING AND/OR SUPPORTIVE, IN AN OFFICE OR OUTPATIENT FACILITY, APPROXIMATELY 75 TO 80 MINUTES [id number] WITH THE PATIENT 09/06 [facility] SCREENING TEST, PURE TONE, AIR ONLY 09/02 [facility] PSYCHIATRIC DIAGNOSTIC INTERVIEW EXAMINATION 08/30 [facility] MEDICATION THERAPY MGT SERVICE(S) PROVIDED,A PHARMACISTMAURIZIO,FACE-TO -FACE W PATIENT,WITH ASSESS & INTERVENE IF PROVIDED;EA ADDITION 15 MINUTES (LIST SEPARATELY IN ADDITION TO CODE FOR PRIM SERVICE) 08/04 [facility] MEDICAL NUTRITION THERAPY; RE-ASSESSMENT AND INTERVENTION, INDIVIDUAL, [id number] WITH THE PATIENT, EACH 15 MINUTES 08/04 [facility] KNEE ORTHOSIS (KO), ELASTIC KNEE CAP, PREFABRICATED, INCLUDES FITTING AND ADJUSTMENT 05/03 [facility] TETANUS, DIPHTHERIA TOXOIDS AND ACELLULAR PERTUSSIS VACCINE (TDAP), WHEN ADMINISTERED TO INDIVIDUALS 7 YEARS OR OLDER, FOR INTRAMUSCULAR USE 01/15 DoD INJECTION, KETOROLAC TROMETHAMINE, PER 15 MG 12/03 [facility] CURRENT SMOKELESS TOBACCO USER (EG, CHEW, SNUFF) (PV) 10/05 [facility] MEDICAL NUTRITION THERAPY; RE-ASSESSMENT AND INTERVENTION, INDIVIDUAL, [id number] WITH THE PATIENT, EACH 15 MINUTES 10/01 [facility] SCREENING TEST, PURE TONE, AIR ONLY 09/24 DoD SKIN TEST; TUBERCULOSIS, INTRADERMAL 09/08 DoD SKIN TEST; TUBERCULOSIS, INTRADERMAL 05/20 [facility] MEDICATION THERAPY MANAGEMENT SERVICE(S) PROVIDED BY A PHARMACIST, INDIVIDUAL, [id number] WITH PATIENT, INITIAL 15 MINUTES, WITH ASSESSMENT, AND INTERVENTION IF PROVIDED; SUBSEQUENT ENCOUNTER 08/08 [facility] CURRENT SMOKELESS TOBACCO USER (EG, CHEW, SNUFF) (PV) 07/18 DoD SKIN TEST; TUBERCULOSIS, INTRADERMAL 06/19 [facility] SCREENING TEST OF VISUAL ACUITY, QUANTITATIVE, BILATERAL 04/25 [facility] AUDIOMETRIC TESTING OF GROUPS 10/30 DoD AUDIOMETRIC TESTING OF GROUPS 09/25 [facility] SELF-CARE/HOME MANAGMENT TRAIN (EG,ACT OF DAILY LIVING (ADL) &COMPENSAT TRAIN,MEAL PREPARATION,SAFETY PROCS,AND INSTRUCT IN USE OF ASST TECHNOLOGY DEV/ADPT EQUIP) DIR ONE-ON-ONE CONT,EA 15 MINUTES 05/01 [facility] MEDICAL NUTRITION THERAPY; GROUP (2 OR MORE INDIVIDUAL(S)), EACH 30 MINUTES 05/01 [facility] HEPATITIS A AND HEPATITIS B VACCINE (HEPA-HEPB), ADULT DOSAGE, FOR INTRAMUSCULAR USE 01/17 [facility] HEPATITIS A AND HEPATITIS B VACCINE (HEPA-HEPB), ADULT DOSAGE, FOR INTRAMUSCULAR USE 03/08 [facility] ANALYSIS OF CLINICAL DATA STORED IN COMPUTERS (EG, ECGS, BLOOD PRESSURES, HEMATOLOGIC DATA) 03/02 [facility] UNLISTED OTORHINOLARYNGOLOGICAL SERVICE OR PROCEDURE 08/10 [facility] SKIN TEST; TUBERCULOSIS, INTRADERMAL 08/10 [facility] TYPHOID VACCINE, CAPSULAR POLYSACCHARIDE (VICPS), FOR INTRAMUSCULAR USE 08/06 [facility] IMMUNIZATION ADMINISTRATION (INCLUDES PERCUTANEOUS, INTRADERMAL, SUBCUTANEOUS, OR INTRAMUSCULAR INJECTIONS); 1 VACCINE (SINGLE OR COMBINATION VACCINE/TOXOID) 05/27 [facility] Ear Protector Attenuation Measurements Ear Protector Attenuation Measurements 52674 11/27 LOLA JONES [facility] Audiogram (Screening) Audiogram (Screening) 04940 11/27 LOLA JONES [facility] Psychiatric Evaluation Review of Records and Reports Psychiatric Evaluation Review of Records and Reports 01643 11/22 RIOS GILMORE [facility] Electrocardiogram Electrocardiogram 61615 11/14 KENN TORRES [facility] Exercise cla es, non-physician provider, per se ion 10/03 HARDY MCCARTHY [facility] Biofeedback Training By Any Modality Biofeedback Training By Any Modality 65683 10/03 HARDY MCCARTHY [facility] Patient Counseling Medical Management Five To Eight Patients Patient Counseling Medical Management Five To Eight Patients 86058 10/03 HARDY MCCARTHY Physical Medicine - Group Physical Therapy Se ion Physical Medicine - Group Physical Therapy Session 38800 10/03 HARDY MCCARTHY [facility] Taping Knee Taping Knee 92572 09/21 MANJULA SANTOS [facility] PT A e ment Kinetic Training PT Assessment Kinetic Training 43712 09/21 MANJULA SANTOS [facility] Physical Medicine Physical Therapy Evaluation Physical Medicine Physical Therapy Evaluation 22674 09/21 MANJULA SANTOS [facility] Injection, ketorolac tromethamine, per 15 mg 06/06 ZULY RUBIN 0750hr TORADOL 60MG GIVEN IM LEFT DELTOID - 8/10 PAIN INTENSITY PRIOR TO INJECTION - LOT# [id number] EXPIRES: 08 APRIL 2012 [facility] Supervised Injection Intramuscular Supervised Injection Intramuscular 54904 06/06 ZULY RUBIN [facility] Psychiatric Therapy Individual Approximately 20-30 Minutes Psychiatric Therapy Individual Approximately 20-30 Minutes 41335 05/12 BECKY SAL [facility] Skin Test Anergy tuberculin Skin Test Anergy tuberculin 79951 04/19 KATHI COLE PPD Lot # [id number] Manufact:Rosy is P[employer] Dose: 0.10ml ID (L) forearm TB syringe) [facility] Ear Protector Attenuation Measurements Ear Protector Attenuation Measurements 72947 12/28 JEANNIE MERRILL [facility] Audiogram (Screening) Audiogram (Screening) 22149 12/28 JEANNIE MERRILL [facility] Visual Function Screening Visual Function Screening 27267 12/27 KELLIE CELESTE [facility] Skin Test Anergy tuberculin Skin Test Anergy tuberculin 45029 12/23 KATHI COLE PPD Lot# [id number] Manufact: Sanofi-P[employer] Dose: 0.10ml ID (L) forearm TB syringe [facility] Screening Test Of Visual Acuity, Quantitative, Bilateral Screening Test Of Visual Acuity, Quantitative, Bilateral 16354 12/28 ALDAIR OLIVO [facility] Collection Of Capillary Blood Specimen Collection Of Capillary Blood Specimen 57755 12/28 ALDAIR OLIVO [facility] Skin Test Anergy tuberculin Skin Test Anergy tuberculin 73393 11/22 RIANA MOROCHO PPD 0.1ml given ID in Left Forearm. Additional Instructions: Return to [facility] in 48 to 72 hrs. You may shower. DO NOT scrub or wash the test site. Do not apply cologne, lotion, perfumes or oils to the test area. This could cause false positive reading. Do not cover the test area with tape or bandages. Do not scratch the test area. [facility] Anthrax Vaccine, For Subcutaneous Use 11/22 RIANA MOROCHO . Anthrax 0.5 ml vaccine given IM via 23 ga 1-inch Safety [place] Needle, in (Right Upper Deltoid Region). PT tolerated the procedure well Qian Xiao'erDA Form 794 Immunization Questionnaire reviewed: No contraindicati ons noted. The Patient received Counseling: Pre-deployment Vaccination and Dose schedule. The ANTHRAX Vaccine Information Sheet (dated 23 July 2008); and other appropriate VIS were given to Recipient. Recipient was advised about site care and reasons for follow-up clinic visit. Pt is instructed to wait in the [facility] Lobby for 20 minutes following all vaccines for safety observation. The patient stated that they understand and will comply with the verbal and written instructions. Electronic Immunization Tracking System (ITS): [employer] & MEDPersonetaS Immunization Record DD 2766C were updated and a copy given to the patient. [facility] Immunization Administration One Vaccine Immunization Administration One Vaccine 99750 11/22 RIANA MOROCHO [facility] Psychiatric Therapy Individual Approximately 45-50 Minutes Psychiatric Therapy Individual Approximately 45-50 Minutes 55991 11/02 ALENA GANNON Psychiatric Therapy Individual Approximately 45-50 Minutes Psychiatric Therapy Individual Approximately 45-50 Minutes 93014 09/16 ALENA GANNON Medication Management By Pharmacist Each Additional 15 Min Medication Management By Pharmacist Each Additional 15 Min 32374 09/15 VERNELL REINA chewing nicotine-containing substances chewing nicotine-containing substances 1035F 09/15 VERNELL REINA A e ment & Intervention Use Of Tobacco A e ed Assessment & Intervention Use Of Tobacco Assessed 1000F 09/15 VERNELL REINA Med Management By Pharmacist Initial 15 Min Estab Patient Med Management By Pharmacist Initial 15 Min Estab Patient 71773 09/15 VERNELL REINA Psychiatric Therapy Indiv By A Physician Approx 75-80 Min Psychiatric Therapy Indiv By A Physician Approx 75-80 Min 59528 09/14 SUMMER MELVIN [facility] Psychiatric Therapy Indiv By A Physician Approx 75-80 Min Psychiatric Therapy Indiv By A Physician Approx 75-80 Min 87759 09/11 ALENA GANNON [facility] Psychiatric Evaluation Comprehensive Examination Psychiatric Evaluation Comprehensive Examination 36481 09/11 ALENA GANNON [facility] Psychiatric Therapy Group (Interview) Psychiatric Therapy Group (Interview) 06626 09/10 MERVIN BEVERLY Medical Nutrition Therapy Re-a e ment, Intervention Medical Nutrition Therapy Re-assessment, Intervention 85023 09/10 CLEOPATRA SCALES PT A e ment Kinetic Training Initial 30 Minutes PT Assessment Kinetic Training Initial 30 Minutes 80109 09/10 RAZ ZARCO Physical Medicine Physical Therapy Evaluation Physical Medicine Physical Therapy Evaluation 67930 09/10 RAZ ZARCO Audiogram (Screening) Audiogram (Screening) 66049 09/02 DAVID FUNES Medical Nutrition Therapy Re-a e ment, Intervention Medical Nutrition Therapy Re-assessment, Intervention 02966 08/04 CLEOPATRA SCALES Medication Management By Pharmacist Each Additional 15 Min Medication Management By Pharmacist Each Additional 15 Min 50372 08/04 VERNELL REINA Med Management By Pharmacist Initial 15 Min Estab Patient Med Management By Pharmacist Initial 15 Min Estab Patient 60233 08/04 VERNELL REINA Lower extremity orthoses, not otherwise specified 05/04 RAZ ZARCO PT A e ment Kinetic Training Initial 30 Minutes PT Assessment Kinetic Training Initial 30 Minutes 17874 05/04 RAZ ZARCO Physical Medicine Physical Therapy Evaluation Physical Medicine Physical Therapy Evaluation 99061 05/04 RAZ ZARCO Tdap Vaccine Tdap Vaccine 06603 01/15 RIANA MOROCHO 0.5 ml vaccine given IM via 23 ga 1-inch SafetyGlide Needle, in left Upper Arm, Deltoid region. PT tolerated the procedure well. [facility] Immunization Administration Each Additional Vaccine 01/15 RIANA MOROCHO Typhoid Vaccine Vi Capsular Polysaccharide, For Intramus Use Typhoid Vaccine Vi Capsular Polysaccharide, For Intramus Use 19429 01/15 RIANA MOROCHO 0.5 ml vaccine given IM via 23 ga 1-inch SafetyGlide Needle, in Right Upper Arm, Deltoid region. PT tolerated the procedure well. DoD Immunization Administration One Vaccine Immunization Administration One Vaccine 64715 01/15 RIANA MOROCHO Injection, ketorolac tromethamine, per 15 mg 12/03 HOWARD SELBY PLEASE GIVE TORADOL 60 MG IM 0840hr TORADOL 60MG GIVEN IM RIGHT DELTOID - TOLERATED THE PROCEDURE WELL - RESTING IN TREATMENT ROOM - 9/10 PAIN INTENSITY PRIOR TO INJECTION Shaggy Ahumada Supervised Injection Intramuscular Supervised Injection Intramuscular 97049 12/03 HOWARD SELBY [facility] chewing nicotine-containing substances chewing nicotine-containing substances 1035F 10/05 PURVI LANZA A e ment & Intervention Use Of Tobacco A e ed Assessment & Intervention Use Of Tobacco Assessed 1000F 10/05 PURVI LANZA Medication Management By Pharmacist Each Additional 15 Min Medication Management By Pharmacist Each Additional 15 Min 43016 10/05 PURVI LANZA Med Management By Pharmacist Initial 15 Min New Patient Med Management By Pharmacist Initial 15 Min New Patient 65058 10/05 PURVI LANZA [facility] Medical Nutrition Therapy Re-a e ment, Intervention Medical Nutrition Therapy Re-assessment, Intervention 46495 10/01 CLEOPATRA SCALES [facility] Audiogram (Screening) Audiogram (Screening) 34012 09/24 DAVID FUNES [facility] Skin Test Anergy tuberculin Skin Test Anergy tuberculin 05834 09/10 RIANA MOROCHO 0.1ml given ID in Left Forearm DoD Immunization Administration One Vaccine Immunization Administration One Vaccine 68533 05/20 DAVID RODRIGUEZ Skin Test Anergy tuberculin Skin Test Anergy tuberculin 56503 05/20 DAVID RODRIGUEZ Skin Test Anergy Tuberculin Intradermal Skin Test Anergy Tuberculin Intradermal 29690 05/20 CISCO MCCALL [facility] Anthrax Vaccine, For Subcutaneous Use 09/02 HERB LIN [facility] Immunization Administration One Vaccine Immunization Administration One Vaccine 75926 09/02 HERB LIN [facility] Medication Management By Pharmacist Subsequent Encounter Medication Management By Pharmacist Subsequent Encounter 46414 08/08 JULISA CROCKETT [facility] chewing nicotine-containing substances chewing nicotine-containing substances 1035F 07/18 JULISA CROCKETT [facility] Medication Management By Pharmacist Each Additional 15 Min Medication Management By Pharmacist Each Additional 15 Min 90487 07/18 JULISA CROCKETT [facility] Medication Management By Pharmacist Initial Encounter Medication Management By Pharmacist Initial Encounter 55507 07/18 JULISA CROCKETT Skin Test Anergy tuberculin Skin Test Anergy tuberculin 51789 06/19 RIANA MOROCHO [facility] Vaccines Vaccines 74220 06/19 RIANA MOROCHO [facility] Immunization Administration Each Additional Vaccine 06/19 RIANA MOROCHO [facility] Anthrax Vaccine, For Subcutaneous Use 06/19 RIANA MOROCHO [facility] Immunization Administration One Vaccine Immunization Administration One Vaccine 08029 06/19 RIANA MOORCHO [facility] Screening Test Of Visual Acuity, Quantitative, Bilateral Screening Test Of Visual Acuity, Quantitative, Bilateral 32997 04/27 CHERYL PHELPS [facility] Threshold Audiogram (Pure Tone) Threshold Audiogram (Pure Tone) 32429 10/30 ALENA AN Audiometry Group Testing Audiometry Grou p Testing 57485 10/30 ALENA AN Audiometry Group Testing Audiometry Grou p Testing 95840 09/25 ALENA AN Threshold Audiogram (Pure Tone) Threshold Audiogram (Pure Tone) 24661 09/25 ALENA AN Medical Nutrition Therapy Group (2 or More Individual(s)) Medical Nutrition Therapy Group (2 or More Individual(s)) 51566 05/02 RAZ SAUNDERS Phys Therapy Education Self Care Training - Per 15 Minutes Phys Therapy Education Self Care Training - Per 15 Minutes 56676 05/01 ANKUSH VELAZQUEZ Social History Combined list of available smoking, tobacco, and other social history from Department of Defense and Veterans Affairs facilities. Social History Type Response Date Comment Sour e Tobacco smoking status NHIS VA-TOBACCO USER EVERY DAY 01/05/2023 [facility] History of tobacco use [place] 30 MIN OF WAKEUP 01/05/2023 [facility] History of tobacco use [place]-TOBACCO NEVER USED 09/23/2021 [facility] History of tobacco use [place] FORMER USER 09/10/2020 [facility] History of tobacco use [place]-TOBACCO USE [place] 30 MIN OF WAKEUP 06/11/2020 [facility] History of tobacco use VA-TOBACCO USER EVERY DAY 09/24/2018 [facility] History of tobacco use TOBACCO CURRENT USER 01/30/2017 [facility] History of tobacco use TOBACCO CURRENT USER 10/13/2016 [facility] History of tobacco use TOBACCO CURRENT USER 09/18/2014 [facility] History of tobacco use TOBACCO CURRENT USER 03/18/2013 [facility] History of tobacco use TOBACCO CURRENT USER 05/09/2012 [place] This section is an empty social history section. [facility] Advance Directives List of completed, amended, or rescinded Advance Directives on record at Department of Veterans Affairs facilities. An actual copy of the Directive is not included. Date Advance Directive Provider Source 02/02/2017 RESCINDED ADVANCE DIRECTIVE FREEDOM SHAH [facility] KELLY COSTELLO
--- OUTSIDE RECORDS SUMMARY | 2025-01-18 16:23 | XMS_ITS | Clinical Summary ---
Author Organization [facility] Address [address] [place] [address] Phone Care Team Providers Care Practice Lead Name Role Phone Unavailable Primary Care Provider Unavailabl e Allergies Active Allergy Reactions Criticality Noted Date Comments Egg Nausea And Vomiting 03/15/2007 Medications multivit-mins/ir on/folic/lycop (CENTRUM MEN ORAL) Take by mouth. Active Surgical History Surgery Date Site/Laterality Comments UPPER GASTROINTESTINAL ENDOSCOPY 02/28/2020 N/A Esophagogastroduodenoscopy with food bolus removal; Surgeon: Faviola Gomez MD; Location: [facility]; Service: Endoscopy Medical History Medical History Date Comments Depression Posttraumatic stress disorder Low back pain Knee osteoarthritis Social History Tobacco Use Types Packs/Day Years Used Date Smoking Tobacco: Never Smokeless Tobacco: Current Chew Alcohol Use Standard Drinks/Week Comments Yes 0 (1 standard drink = 0.6 oz pur e alcohol) doesn't drink often Sex and Gender Information Value Date Recorded Sex Assigned at Not on file Legal Sex Male 9:46 PM EDT Gender Identity Not on file Sexual Orientation Not on file Obstetrics History Last Filed Vital Signs Vital Sign Reading Time Taken Comments Blood Pressure 120/71 02/28/2020 9:45 PM EDT Pulse 81 02/28/2020 9:45 PM EDT Temperature 36.7 C (98.1 F) 05/02/2019 2:00 PM EDT Respiratory Rate 16 02/28/2020 9:45 PM EDT Oxygen Saturation 93% 02/28/2020 9:45 PM EDT Inhaled Oxygen Concentration - - Weight 118.4 kg (261 lb) 05/02/2019 2:00 PM EDT Height 170.2 cm (5' 7 ) 05/02/2019 2:00 PM EDT Body Mass Index 40.88 05/02/2019 2:00 PM EDT Plan of Treatment Health Maintenance Due Date Last Done Comments Annual Wellness Exam 10/08/1983 COVID-19 Vaccine (2023- season) 2024 Influenza Vaccine (#1) 2025 2, 04/18/2005, 05/25/2003 DTaP/TDaP/Td (5 - Td or Tdap) 10/11/2028 10/11/2018, 03/09/2010, 01/15/2009, Additional history exists Hepatitis B Vaccine Completed 01/17/2006, 03/08/2005, 08/06/2003 Meningococcal B Vaccine Aged Out No l onger eligible based on patient's age to complete this topic Pneumococcal Vaccine 0-49 Aged Out No longer eligible based on patient's age to complete this topic Insurance MEDICAID [facility] [id number]
--- NOTE | 2025-01-18 16:24 | ED_ITS ---
Discharge Plan Disposition Patient Disposition: Home, Self-Care Condition: Good Prescriptions Prescriptions: New ondansetron 4 mg tablet,disintegrating 4 mg PO QID PRN (Reason: nausea and vomiting) Qty: 10 0RF tamsulosin 0.4 mg capsule 0.4 mg PO HS Qty: 10 0RF Referrals Follow up/Referrals: Dre Ford MD [Referring, Urology] - See instructions Provider,Referral, [Primary Care Provider, Medical] - See instructions Activity Restrictions/Add. Instructions Additional Instructions/Restrictions: As we have discussed please strain all your urine. I have sent nausea medicine and a ureter dilator to help you pass the stone. I have given you the name of urologist in [place] to follow-up with if you have persistent symptoms. If you have new or worsening signs or symptoms follow-up with your PCP return to the ER as needed. Clinical Impressions Clinical Impression: Ureterolithiasis Instructions Patient Instructions: DI for Acute Abdominal Pain Print Language Print Language: Icelandic Discharge ED Provider: Vamsi Vogt General Adult HPI <FIORELLA Brady - Last Filed: 01/18/25 19:23> General Chief complaint: Abdominal Pain Stated complaint: lower abdominal pain , right side Time Seen by Provider: 01/18/25 16:24 History of Present Illness HPI narrative: Patient presents for evaluation of right lower quadrant abdominal pain. Patient states that he began having right lower quadrant abdominal pain that started shortly after he woke up. Patient states that the pain is continued to escalate and has been present ever since. He states it hurts to walk. He reports some nausea and 1 episode of vomiting but no diarrhea. Last bowel movement was yesterday. He does have a history of kidney stones but denies dysuria or hematuria. He has never had any abdominal surgery. Pain does not radiate anywhere. Related Data Previous Rx's ?Medication ?Instructions ?Recorded ondansetron 4 mg disintegrating 4 mg PO QID PRN nausea and 01/18/25 tablet vomiting #10 tabs tamsulosin 0.4 mg capsule 0.4 mg PO HS #10 caps Allergies Allergy/AdvReac Type Severity Reaction Status Date / Time No Known Allergies Allergy Verified 02/25/21 14:50 PFSH <FIORELLA Brady - Last Filed: 01/18/25 19:23> PFS Disclaimer: The information contained in this section may have been updated after the patient was seen, as this information can be updated by other users. Medical History (Updated 01/18/25 @ 19:23 by FIORELLA Brady) No significant past medical history Family History (Updated 01/18/25 @ 16:27 by Nancy Whaley RN) Other No significant family history Social History Smoking Status: Never smoker alcohol intake: current alcohol intake frequency: holidays/special occasions only current occupational status: employed Travel in the last 8 weeks?: None household members: spouse housing: house Have you lived/traveled outside [place] in past 30 days?: No Contact w/someone who lives/traveled outside US past 30 days?: No Exposure to someone with infectious disease in past 14 days?: No Do you have a fever (greater than 100.4 F or 38 C)?: No Have you tested positive for COVID-19?: No Exposed to someone with COVID-19 in past 14 days?: No Do you have a sore throat?: No Do you have a cough?: No Do you have any weakness?: No Do you have any diarrhea?: No Are you experiencing any unusual bleeding?: No Do you have any muscle aches/pain?: No Do you have any abdominal pain?: No Are you experiencing loss of taste or smell?: No Other Medical History Have you received the Flu Vaccine for this season: No Have you received the Pneumonia Vaccine: No <FIORELLA Brady - Last Filed: 01/18/25 19:23> ROS Obtained: Yes Systems reviewed as appropriate & no additional complaints except as documented Physical Exam <FIORELLA Brady - Last Filed: 01/18/25 19:23> General General appearance: alert Respiratory Respiratory exam: Present normal lung sounds bilaterally Cardiovascular Cardiovascular exam: Present regular rate and +S2 Neurological Exam Neurological exam: Present alert and oriented X3 Medical Decision Making <FIORELLA Brady - Last Filed: 01/18/25 19:23> Medical Records Medical records reviewed: Yes I reviewed the patient's medical records. Screening: Per USPSTF and CDC recommendations, given the prevalence of disease in our region, it is our hospital?s policy to screen for HIV and viral Hepatitis for all patients aged 18 and over and those with ongoing risk factors. [place] Inquiry Pt receiving controlled substance: No Vital Signs: 01/18/25 16:26 01/18/25 16:26 01/18/25 16:31 Temperature 97.9 F 97.9 F Temperature Source Oral Oral Pulse Rate 68 70 Pulse Rate [Right Radial] 68 Respiratory Rate 20 20 18 Blood Pressure 145/94 H 130/83 Blood Pressure [Right Arm] 145/94 H Blood Pressure Mean 98 Blood Pressure Mean [Right Arm] 111 Blood Pressure Source [Right Arm] Automatic Cuff Blood Pressure Position Blood Pressure Position [Right Arm] Sitting 02 Sat by Pulse Oximetry 97 97 97 Oxygen Delivery Method Room Air Room Air 01/18/25 17:01 01/18/25 18:01 01/18/25 18:37 Temperature Temperature Source Pulse Rate 71 67 64 Pulse Rate [Right Radial] Respiratory Rate 18 18 18 Blood Pressure 107/63 L 128/91 H 129/75 Blood Pressure [Right Arm] Blood Pressure Mean 84 103 93 Blood Pressure Mean [Right Arm] Blood Pressure Source [Right Arm] Blood Pressure Position Blood Pressure Position [Right Arm] 02 Sat by Pulse Oximetry 95 95 95 Oxygen Delivery Method 01/18/25 19:01 01/18/25 19:31 01/18/25 19:33 Temperature 97.6 F 97.6 F Temperature Source Oral Pulse Rate 55 L 63 63 Pulse Rate [Right Radial] Respiratory Rate 16 16 16 Blood Pressure 124/60 114/94 H 114/94 H Blood Pressure [Right Arm] Blood Pressure Mean 81 98 Blood Pressure Mean [Right Arm] Blood Pressure Source [Right Arm] Blood Pressure Position Supine Blood Pressure Position [Right Arm] 02 Sat by Pulse Oximetry 94 L 94 L Oxygen Delivery Method Room Air 01/18/25 19:35 Temperature 97.6 F Temperature Source Pulse Rate 63 Pulse Rate [Right Radial] Respiratory Rate 16 Blood Pressure 114/64 Blood Pressure [Right Arm] Blood Pressure Mean Blood Pressure Mean [Right Arm] Blood Pressure Source [Right Arm] Blood Pressure Position Blood Pressure Position [Right Arm] 02 Sat by Pulse Oximetry Oxygen Delivery Method Room Air Lab Data Lab results reviewed: Yes I reviewed the patient's lab results. Lab Results 01/18/25 16:47: WBC 8.3, RBC 5.15, Hgb 14.6, Hct 43.6, MCV 84.7, MCH 28.3, MCHC 33.5, RDW 13.5, Plt Count 224, MPV 10.4, Neut % (Auto) 62.3, Lymph % (Auto) 24.3, Thayer % (Auto) 6.4, Eos % (Auto) 5.4, Baso % (Auto) 1.2, Neut # (Auto) 5.2, Lymph # (Auto) 2.0, Thayer # (Auto) 0.5, Eos # (Auto) 0.5 H, Baso # (Auto) 0.1, Sodium 139, Potassium 4.0, Chloride 101, Carbon Dioxide 27, Anion Gap 15.0, BUN 16, Creatinine 1.10, Estimated Creat Clear 135, Estimated GFR 73, Est GFR ( Amer) 88, Glucose 124 H, Calcium 9.1, Total Bilirubin 0.3, AST 40, ALT 48, Alkaline Phosphatase 81, C-Reactive Protein 3.2, Total Protein 7.8, Albumin 4.3, Globulin 3.5 H, Albumin/Globulin Ratio 1.2, Procalcitonin 0.091, HCV Ab GEOFF w/Rflx PCR Qn Negative, HIV Ag/Ab Combo Qual Negative 01/18/25 18:30: Urine Color Yellow, Urine Appearance Clear, Urine pH 6.0, Ur Specific [place] 1.010, Urine Protein Negative, Urine Glucose (UA) Negative, Urine Ketones Negative, Urine Blood 3+ A, Urine Nitrate Negative, Urine Bilirubin Negative, Urine Urobilinogen 0.2, Ur Leukocyte Esterase Negative, Urine RBC 20-50, Urine WBC None, Ur Squamous Epith Cells Occasional, Urine Bacteria Trace, Hyaline Casts Occ, Urine Mucus 1+ 01/18/25 16:47 01/18/25 16:47 Orders (Tests/Meds): ED MEDICATIONS Discontinued Medications Generic Name Dose Route Start Last Admin Trade Name Freq PRN Reason Stop Dose Admin Acetaminophen 1,000 mg 01/18/25 16:31 01/18/25 17:06 Acetaminophen 500mg Tab PO 01/18/25 16:32 1,000 mg ONCE ONE Administration Sodium Chloride 1,000 mls @ 999 mls/hr 01/18/25 16:31 01/18/25 17:03 Sod Chlor 0.9% 1000ml Bag IV 01/18/25 17:31 999 mls/hr .Q1H1M ONE Administration Iopamidol 75 ml 01/18/25 17:28 01/18/25 17:28 Iopamidol-370 (76%);100ml Bottle IV 01/18/25 17:29 75 ml ONCE ONE Administration Ketorolac Tromethamine 15 mg 01/18/25 16:31 01/18/25 17:05 Ketorolac 30mg/Ml Vial IV 01/18/25 16:32 15 mg ONCE ONE Administration Ondansetron HCl 4 mg 01/18/25 16:31 01/18/25 17:03 Ondansetron 4mg/2ml Vial IV 01/18/25 16:32 4 mg ONCE ONE Administration Sodium Chloride 10 ml 01/18/25 17:28 01/18/25 17:28 Sodium Chloride 0.9% 10ml Syr (Rad Only) IV 01/18/25 17:29 10 ml ONCE ONE Administration Tamsulosin HCl 0.4 mg 01/18/25 19:23 01/18/25 19:31 Tamsulosin 0.4mg Capsule PO 01/18/25 19:24 0.4 mg ONCE ONE Administration ORDERS Category Date Time Status CT abdomen pelvis w con Stat Cat Scan 01/18/25 16:31 Completed CBC w/Auto Diff [Complete Blood Count Auto Diff] Stat Lab 01/18/25 16:47 Completed CMP [Comprehensive Metabolic Panel] Stat Lab 01/18/25 16:47 Completed CRP [C-Reactive Protein] Stat Lab 01/18/25 16:47 Completed HIV Combo Stat Lab 01/18/25 16:47 Completed Hepatitis C Ab Qual. W/ RFX Stat Lab 01/18/25 16:47 Completed Procalcitonin Stat Lab 01/18/25 16:47 Completed UA [Urinalysis and Microscopic] Stat Lab 01/18/25 18:30 Completed Medical Decision Narrative: In summary patient is a patient is a 44-year-old gentleman who presents to the emergency department for evaluation of acute onset of right lower quadrant abdominal pain. Patient is hemodynamically stable with a blood pressure 145/94 pulse 68 normal sinus rhythm on the bedside monitor breathing 20 times a minute satting at 97% on room air upon arrival, the temperature of 97.9. Physical exam is remarkable for a well-nourished well-developed overweight, with a BMI of 38, 44-year-old gentleman appears to be uncomfortable but otherwise in no acute distress. Physical exam is remarkable for tenderness to palpation in the right lower quadrant without rebound or guarding or rigidity. Bowel sounds normal active. He has no CVA tenderness to percussion.. Differential diagnosis includes acute appendicitis versus ureterolithiasis versus colitis etc. Initial workup will be conducted with hematologic labs urinalysis CT scan abdomen pelvis.. Initial interventions include crystalloid bolus Toradol Tylenol Zofran. Initial workup reviewed by me and hematologic labs are nonactionable urinalysis is positive for hematuria and my informed interpretation of his imaging shows a right UVJ stone no evidence of hydronephrosis currently.. Upon repeat evaluation patient reports that he is significant improved after initial intervention. Given this patient is appropriate for discharge with prescription for Zofran and tamsulosin and recommendations to follow-up with urology should he have any persistent new or worsening signs or symptoms to follow-up with his PCP or return to the ER as needed. <Vamsi Vogt MD - Last Filed: 01/19/25 09:33> Vital Signs: 01/18/25 16:26 01/18/25 16:26 01/18/25 16:31 Temperature 97.9 F 97.9 F Temperature Source Oral Oral Pulse Rate 68 70 Pulse Rate [Right Radial] 68 Respiratory Rate 20 20 18 Blood Pressure 145/94 H 130/83 Blood Pressure [Right Arm] 145/94 H Blood Pressure Mean 98 Blood Pressure Mean [Right Arm] 111 Blood Pressure Source [Right Arm] Automatic Cuff Blood Pressure Position Blood Pressure Position [Right Arm] Sitting 02 Sat by Pulse Oximetry 97 97 97 Oxygen Delivery Method Room Air Room Air 01/18/25 17:01 01/18/25 18:01 01/18/25 18:37 Temperature Temperature Source Pulse Rate 71 67 64 Pulse Rate [Right Radial] Respiratory Rate 18 18 18 Blood Pressure 107/63 L 128/91 H 129/75 Blood Pressure [Right Arm] Blood Pressure Mean 84 103 93 Blood Pressure Mean [Right Arm] Blood Pressure Source [Right Arm] Blood Pressure Position Blood Pressure Position [Right Arm] 02 Sat by Pulse Oximetry 95 95 95 Oxygen Delivery Method 01/18/25 19:01 01/18/25 19:31 01/18/25 19:33 Temperature 97.6 F 97.6 F Temperature Source Oral Pulse Rate 55 L 63 63 Pulse Rate [Right Radial] Respiratory Rate 16 16 16 Blood Pressure 124/60 114/94 H 114/94 H Blood Pressure [Right Arm] Blood Pressure Mean 81 98 Blood Pressure Mean [Right Arm] Blood Pressure Source [Right Arm] Blood Pressure Position Supine Blood Pressure Position [Right Arm] 02 Sat by Pulse Oximetry 94 L 94 L Oxygen Delivery Method Room Air 01/18/25 19:35 Temperature 97.6 F Temperature Source Pulse Rate 63 Pulse Rate [Right Radial] Respiratory Rate 16 Blood Pressure 114/64 Blood Pressure [Right Arm] Blood Pressure Mean Blood Pressure Mean [Right Arm] Blood Pressure Source [Right Arm] Blood Pressure Position Blood Pressure Position [Right Arm] 02 Sat by Pulse Oximetry Oxygen Delivery Method Room Air Lab Data Lab Results 01/18/25 16:47: WBC 8.3, RBC 5.15, Hgb 14.6, Hct 43.6, MCV 84.7, MCH 28.3, MCHC 33.5, RDW 13.5, Plt Count 224, MPV 10.4, Neut % (Auto) 62.3, Lymph % (Auto) 24.3, Thayer % (Auto) 6.4, Eos % (Auto) 5.4, Baso % (Auto) 1.2, Neut # (Auto) 5.2, Lymph # (Auto) 2.0, Thayer # (Auto) 0.5, Eos # (Auto) 0.5 H, Baso # (Auto) 0.1, Sodium 139, Potassium 4.0, Chloride 101, Carbon Dioxide 27, Anion Gap 15.0, BUN 16, Creatinine 1.10, Estimated Creat Clear 135, Estimated GFR 73, Est GFR ( Amer) 88, Glucose 124 H, Calcium 9.1, Total Bilirubin 0.3, AST 40, ALT 48, Alkaline Phosphatase 81, C-Reactive Protein 3.2, Total Protein 7.8, Albumin 4.3, Globulin 3.5 H, Albumin/Globulin Ratio 1.2, Procalcitonin 0.091, HCV Ab GEOFF w/Rflx PCR Qn Negative, HIV Ag/Ab Combo Qual Negative 01/18/25 18:30: Urine Color Yellow, Urine Appearance Clear, Urine pH 6.0, Ur Specific [place] 1.010, Urine Protein Negative, Urine Glucose (UA) Negative, Urine Ketones Negative, Urine Blood 3+ A, Urine Nitrate Negative, Urine Bilirubin Negative, Urine Urobilinogen 0.2, Ur Leukocyte Esterase Negative, Urine RBC 20-50, Urine WBC None, Ur Squamous Epith Cells Occasional, Urine Bacteria Trace, Hyaline Casts Occ, Urine Mucus 1+ Orders (Tests/Meds): ED MEDICATIONS Discontinued Medications Generic Name Dose Route Start Last Admin Trade Name Kirk PRN Reason Stop Dose Admin Acetaminophen 1,000 mg 01/18/25 16:31 01/18/25 17:06 Acetaminophen 500mg Tab PO 01/18/25 16:32 1,000 mg ONCE ONE Administration Sodium Chloride 1,000 mls @ 999 mls/hr 01/18/25 16:31 01/18/25 17:03 Sod Chlor 0.9% 1000ml Bag IV 01/18/25 17:31 999 mls/hr .Q1H1M ONE Administration Iopamidol 75 ml 01/18/25 17:28 01/18/25 17:28 Iopamidol-370 (76%);100ml Bottle IV 01/18/25 17:29 75 ml ONCE ONE Administration Ketorolac Tromethamine 15 mg 01/18/25 16:31 01/18/25 17:05 Ketorolac 30mg/Ml Vial IV 01/18/25 16:32 15 mg ONCE ONE Administration Ondansetron HCl 4 mg 01/18/25 16:31 01/18/25 17:03 Ondansetron 4mg/2ml Vial IV 01/18/25 16:32 4 mg ONCE ONE Administration Sodium Chloride 10 ml 01/18/25 17:28 01/18/25 17:28 Sodium Chloride 0.9% 10ml Syr (Rad Only) IV 01/18/25 17:29 10 ml ONCE ONE Administration Tamsulosin HCl 0.4 mg 01/18/25 19:23 01/18/25 19:31 Tamsulosin 0.4mg Capsule PO 01/18/25 19:24 0.4 mg ONCE ONE Administration ORDERS Category Date Time Status CT abdomen pelvis w con Stat Cat Scan 01/18/25 16:31 Completed CBC w/Auto Diff [Complete Blood Count Auto Diff] Stat Lab 01/18/25 16:47 Completed CMP [Comprehensive Metabolic Panel] Stat Lab 01/18/25 16:47 Completed CRP [C-Reactive Protein] Stat Lab 01/18/25 16:47 Completed HIV Combo Stat Lab 01/18/25 16:47 Completed Hepatitis C Ab Qual. W/ RFX Stat Lab 01/18/25 16:47 Completed Procalcitonin Stat Lab 01/18/25 16:47 Completed UA [Urinalysis and Microscopic] Stat Lab 01/18/25 18:30 Completed Medical Decision Narrative: In summary patient is a patient is a 44-year-old gentleman who presents to the emergency department for evaluation of acute onset of right lower quadrant abdominal pain. Patient is hemodynamically stable with a blood pressure 145/94 pulse 68 normal sinus rhythm on the bedside monitor breathing 20 times a minute satting at 97% on room air upon arrival, the temperature of 97.9. Physical exam is remarkable for a well-nourished well-developed overweight, with a BMI of 38, 44-year-old gentleman appears to be uncomfortable but otherwise in no acute distress. Physical exam is remarkable for tenderness to palpation in the right lower quadrant without rebound or guarding or rigidity. Bowel sounds normal active. He has no CVA tenderness to percussion.. Differential diagnosis includes acute appendicitis versus ureterolithiasis versus colitis etc. Initial workup will be conducted with hematologic labs urinalysis CT scan abdomen pelvis.. Initial interventions include crystalloid bolus Toradol Tylenol Zofran. Initial workup reviewed by me and hematologic labs are nonactionable urinalysis is positive for hematuria and my informed interpretation of his imaging shows a right UVJ stone no evidence of hydronephrosis currently.. Upon repeat evaluation patient reports that he is significant improved after initial intervention. Given this patient is appropriate for discharge with prescription for Zofran and tamsulosin and recommendations to follow-up with urology should he have any persistent new or worsening signs or symptoms to follow-up with his PCP or return to the ER as needed. I was consulted by the JOSIE, and we discussed the complexity of the problems being addressed. I approve the treatment and management plan for this patient's care in the emergency department, thus performing a substantive portion of the medical decision making. Vamsi Vogt MD Critical Care <FIORELLA Brady - Last Filed: 01/18/25 19:23> Critical Care Time Critical Care Time: No
--- NOTE | 2025-01-18 16:31 | CT_ITS ---
PROCEDURE INFORMATION: Exam: CT Abdomen And Pelvis With Contrast Exam date and time: 01/18/2025 5:29 PM Age: 44 years old Clinical indication: Abdominal pain; Generalized; Additional info: Right lower quadrant abdominal pain TECHNIQUE: Imaging protocol: Computed tomography of the abdomen and pelvis with contrast. Radiation optimization: All CT scans at this facility use at least one of these dose optimization techniques: automated exposure control; mA and/or kV adjustment per patient size (includes targeted exams where dose is matched to clinical indication); or iterative reconstruction. Contrast material: ISOVUE; Contrast volume: 75 ml; Contrast route: IV; COMPARISON: CT ABDOMEN PELVIS W CON 02/20/2021 4:04 AM FINDINGS: Lungs: Clear lung bases. Liver: Hepatic steatosis is evident. Hepatomegaly at 23 cm craniocaudal dimension. Gallbladder and biliary ducts: Normal. No calcified stones. No ductal dilation. Pancreas: Normal. No ductal dilation. Spleen: Normal. No splenomegaly. Adrenal glands: Normal. No mass. Kidneys and ureters: Nonobstructive bilateral kidney stones measure as large as 3 mm. 2 x 2 x 2 mm right sided ureterovesicular junction stone. Mild hydronephrosis. Perinephric edema is related to obstruction. Stomach and bowel: Unremarkable. No obstruction. No mucosal thickening. Appendix: Normal appendix. Intraperitoneal space: Unremarkable. No free air. No significant fluid collection. Vasculature: Unremarkable. No abdominal aortic aneurysm. Bilateral accessory renal arteries incidentally noted. Lymph nodes: Nonspecific prominent lymph node adjacent to the distal esophagus. Urinary bladder: Unremarkable as visualized. Reproductive: Unremarkable as visualized. Bones/joints: Moderate disc space height loss at L5/S1. Moderate bilateral neuroforaminal narrowing. Soft tissues: Fat-containing umbilical hernia is present without inflammation. IMPRESSION: 1. 2 x 2 x 2 mm right sided ureterovesicular junction stone. Mild hydronephrosis. 2. Normal appendix. 3. Hepatic steatosis noted with hepatomegaly.
[2025-01-18 16:59] LABS: Hematocrit 43.6 % (42.0-52.0); Hemoglobin 14.6 g/dL (14.1-18.0); Immature Granulocytes % 0.4 %; Mean Corpuscular HGB Conc 33.5 g/dL (31.8-35.4); Mean Corpuscular Hemoglobin 28.3 pg (27.0-31.2); Mean Corpuscular Volume 84.7 fl (80-94); Nucleated Red Blood Cells % 0 %; Platelet Count 224 K/mm3 (142-424); Red Blood Count 5.15 M/mm3 (4.60-6.20); Red Cell Distribution Width-SD 41.9 fL; White Blood Count 8.3 K/mm3 (4.8-10.8)
[2025-01-18] MEDS: ONDANSETRON 4MG/2ML VIAL 4 MG IV (17:03)
[2025-01-18] MEDS: 0.9 % SODIUM CHLORIDE 1000ML 1,000 ML 999 ML IV (17:03)
[2025-01-18] MEDS: KETOROLAC 30MG/ML VIAL 15 MG IV (17:05)
[2025-01-18] MEDS: ACETAMINOPHEN 500MG TAB 1000 MG PO (17:06)
[2025-01-18 17:13] LABS: Chloride 101 mmol/L (98-107)
[2025-01-18 17:14] LABS: Albumin Level 4.3 g/dl (3.5-5.0); Potassium 4.0 mmoL/L (3.5-5.1); Sodium 139 mmol/L (136-145)
[2025-01-18 17:16] LABS: Alanine Aminotransferase 48 U/L (12-78); Anion Gap 15.0 mEq/L (5-15); Aspartate Amino Transferase 40 U/L (17-59); Blood Urea Nitrogen 16 mg/dl (9-20); Carbon Dioxide 27 mmol/L (22.0-30.0); Creatinine Clearance Estimated 135 mL/min (50-200); Creatinine,Serum 1.10 mg/dl (0.66-1.25); Estimated Glomerular Filt Rate 73 ml/min (>60); GFR (African American) 88 ML/MIN (>60)
[2025-01-18 17:17] LABS: Albumin/Globulin Ratio 1.2 (1.1-1.8); Alkaline Phosphatase 81 U/L (38-126); Bilirubin,Total 0.3 mg/dl (0.2-1.3); Calcium 9.1 mg/dl (8.4-10.2); Globulin 3.5 g/dL (1.3-3.2); Glucose 124 mg/dl (74-100); Total Protein,Serum 7.8 g/dl (6.3-8.2)
[2025-01-18] MEDS: SODIUM CHLORIDE 0.9% 10ML SYR (RAD ONLY) 10 ML IV (17:28)
[2025-01-18] MEDS: IOPAMIDOL-370 (76%);100ML BOTTLE 75 ML IV (17:28)
[2025-01-18 18:00] LABS: C-Reactive Protein 3.2 mg/L (0-4)
[2025-01-18 18:02] LABS: Procalcitonin 0.091 ng/mL (0.0-2.0)
[2025-01-18 18:21] LABS: Hepatitis C Ab Qual. W/ RFX NEGATIVE (Negative)
[2025-01-18 18:37] LABS: Microscopic, Urine URINE MICROSCOPIC (MICROSCOPIC)
[2025-01-18 18:49] LABS: Bilirubin,Urine Negative (Negative); Color,Urine YELLOW (Yellow); Glucose,Urine (UA) Negative (Negative); Ketones,Urine Negative (Negative); Leukocyte Esterase,Urine Negative (Negative); PH,Urine 6.0 (5.0-8.5); Protein,Urine Negative (Negative); Specific Gravity, Urine 1.010 (1.005-1.030); Urobilinogen,Urine 0.2 EU/dl (0.2)
[2025-01-18 19:04] LABS: RBC,Urine 20-50 #/hpf (0-3)
[2025-01-18 19:05] LABS: Bacteria,Urine Trace /lpf; Hyaline Casts,Urine OCC #/lpf (0); Mucus,Urine 1+ /lpf; Squamous Epithelial Cell,Urine Occasional #/hpf (0-5)
[2025-01-18] MEDS: TAMSULOSIN 0.4MG CAPSULE 0.4 MG PO (19:31)
== END 2025-01-18 19:38 | disposition home or self-care (01) ==
PROVIDERS: Physician Assistant; Emergency Provider Student in an Organized Health Care Education/Training Program
DX: R10.31 Right lower quadrant pain (principal); N20.1 Calculus of ureter; R11.10 Vomiting, unspecified
CPT/HCPCS: 74177; 80053; 81001; 84145; 85025; 86140; 86803; 87389; 96361; 96374; 96375; 99285; J1885; J2405; J7030; Q9967